=== PATIENT | female | born 1990 | race Caucasian/White ===

== ENCOUNTER 2016-10-14 22:48 | Emergency (ER) | payer BC ==
[2016-10-14] MEDS ORDERED: LORazepam INJ* 2 MG/ML 1 ML VIAL IV PUSH ONE (23:09)
--- NOTE | 2016-10-14 23:17 | ED ---
Psychiatric Complaint - HPI Summary HPI Summary: Patient presents to ED with CC of anxiety attack after speaking with her boyfriend on the phone this afternoon. She notes to 1 alcoholic drink prior to the phone call. She has a history of bipolar and depression, but has never been dx with anxiety. She takes multiple medications for depression and bipolar and is seen by a counselor. She admits this happening twice before, but never this bad. She denies SI/HI or self harm. Denies current pain. She states her throat feels uncomfortable because of hyperventilating. She did not take anything for relief. On arrival, she is notably anxious, but is breathing OK. - History Of Current Complaint Chief Complaint: EDMentalHealth Time Seen by Provider: 10/14/16 23:00 Hx Obtained From: Patient Hx Last Menstrual Period: 2 MONTHS AGO ?: No Onset/Duration: Sudden Onset Timing: Minutes Severity Initially: Moderate Severity Currently: Mild Character: Depressed, Anxious Aggravating Factor(s): Recent Stress Alleviating Factor(s): Medication, Counseling Related History: Positive For: Prior Psychiatric Issues - Risk Factor(s) Completed Suicide Risk Factors: Negative - Allergies/Home Medications Allergies/Adverse Reactions: Allergies Allergy/AdvReac Type Severity Reaction Status Date / Time Sertraline Allergy Severe trouble Verified 05/25/14 19:28 breathing Eletriptan [From Relpax] Allergy Intermediate Swelling Verified 05/25/14 19:28 Of Face,Lips,& Throat Cefdinir [From Omnicef] Allergy Mild Hives Verified 05/25/14 19:28 Penicillins Allergy Mild rash, hives Verified 05/25/14 19:28 PMH/Surg Hx/FS Hx/Imm Hx Previously Healthy: Yes Endocrine/Hematology History: Reports: Hx Thyroid Disease Denies: Hx Anticoagulant Therapy, Hx Diabetes Cardiovascular History: Denies: Hx Hypertension, Hx Pacemaker/ICD Respiratory History: Denies: Hx Asthma, Hx Chronic Obstructive Pulmonary Disease (COPD) GI History: Reports: Hx Crohn's Disease History: Denies: Hx Renal Disease Musculoskeletal History: Reports: Hx Back Problems Denies: Hx Rheumatoid Arthritis, Hx Osteoporosis Neurological History: Reports: Hx Migraine, Other Neuro Impairments/Disorders - Angioneurotic edema Denies: Hx Dementia, Hx Seizures Psychiatric History: Denies: Hx Substance Abuse - Cancer History Cancer Type, Location and Year: migraines, chrons - Surgical History Surgery Procedure, Year, and Place: ear tubes x4. ADDENOIDECTOMY. liver biopsy Infectious Disease History: Reports: Hx Shingles - ? right side/never had a rash Denies: Hx Clostridium Difficile, Hx Hepatitis, Hx Human Immunodeficiency Virus (HIV), Hx Tuberculosis, Hx Known/Suspected VRE, Hx Known/Suspected VRSA, History Other Infectious Disease, Traveled Outside the [place] in Last 30 Days - Social History Occupation: Unemployed Lives: With Family Alcohol Use: Occasionally Hx Substance Use: No Substance Use Type: Reports: None Hx Tobacco Use: No Smoking Status (MU): Never Smoked Tobacco Do You Chew or Dip Tobacco: No Have You Chewed or Dipped Tobacco in the LAST YEAR: No Review of Systems Constitutional: Negative Eyes: Negative Cardiovascular: Negative Respiratory: Negative Positive: no symptoms reported, see HPI Musculoskeletal: Negative Skin: Negative Positive: Anxious, Depressed All Other Systems Reviewed And Are Negative: Yes Physical Exam Triage Information Reviewed: Yes Vital Signs Reviewed: Yes Appearance: Positive: Well-Appearing, Well-Nourished Skin: Positive: Warm, Skin Color Reflects Adequate Perfusion Head/Face: Positive: Normal Head/Face Inspection Eyes: Positive: EOMI, MARÍA ELENA, Conjunctiva Clear Neck: Positive: Supple, No Lymphadenopathy Respiratory/Lung Sounds: Positive: Clear to Auscultation, Breath Sounds Present Cardiovascular: Positive: Normal, RRR, Pulses are Symmetrical in both Upper and Lower Extremities Musculoskeletal: Positive: Normal, Strength/ROM Intact Neurological: Positive: Normal, Sensory/Motor Intact, Alert, Oriented to Person Place, Time Psychiatric: Positive: Anxious AVPU Assessment: Alert Course/Dx - Course Assessment/Plan: Patient is very anxious on arrival, but is calm after 2mg ativan. She does not have any at home medication for breakthrough anxiety. Provider explained ways to handle anxiety and given prescription for ativan. She is OK with plan. Denies SI/HI and is well connected with resources. Discharged with ativan prescription. - Differential Dx/Clinical Impression Differential Diagnosis/HQI/PQRI: Positive: Alcohol Intoxication, Anxiety, Bipolar Disorder, Depression Provider Diagnosis: Anxiety attack Discharge - Discharge Plan Condition: Stable Disposition: HOME Prescriptions: Lorazepam [Ativan 1 MG TAB] 1 mg PO TID PRN #30 tab MDD 3 PRN Reason: Anxiety Patient Education Materials: Anxiety (ED) Referrals: Jander,Ronel, MD [Medical Doctor] - Additional Instructions: Take Ativan 1mg as needed at first feeling of anxiety symptoms. Follow up with your doctor for more evaluation. If you develop worsening symptoms, come back to ED. After taking the ativan, place your head between your knees, close your eyes and breath deeply for several minutes thinking about something that makes you happy. This relieves a lot of anxiety immediately and will help prevent hyperventilation.
[2016-10-15] MEDS ORDERED: LORazepam INJ* 2 MG/ML 1 ML VIAL IM ONE (00:02)
[2016-10-15] MEDS ORDERED: Ibuprofen TAB* 600 MG PO ONE (01:09)
[2016-10-15] MEDS ORDERED: LORazepam TAB(*) 1 MG PO ONE (01:18)
[2016-10-15 01:30] VITALS: BP 93/61
== END 2016-10-15 01:30 | disposition home or self-care (01) ==
LOC: ED 22:48
DX: F41.9 Anxiety disorder, unspecified (principal)
CPT/HCPCS: 96372; 96374; 99282; A9270-GY; J2060

== ENCOUNTER 2017-06-05 04:46 | Emergency (ER) | payer BC ==
[2017-06-05] MEDS ORDERED: Metoclopramide IV* 5 MG/ML 2 ML VIAL IV SLOW PU ONE (05:30)
[2017-06-05] MEDS ORDERED: Ketorolac INJ* 30 MG/ML 1 ML VIAL IV PUSH ONE (05:30)
[2017-06-05] MEDS ORDERED: NS 0.9% 1000 ML* 1,000 ML IV ONE ×2 (05:31→08:13)
[2017-06-05] MEDS ORDERED: diPHENhydraMINE IV* 50 MG/ML 1 ml VIAL (BENADRYL) IV ONE (05:31)
--- NOTE | 2017-06-05 06:53 | ED ---
Jaki Gyu Thomas, scribed for Ulysses Isabel MD on 06/05/17 at 0522 . Headache - HPI Summary HPI Summary: The patient is a 26 year old female with a history of migraine headaches presenting to the emergency department complaining of a migraine headache for the last 1.5 days. The headache is a frontal headache. The pain is constant and is rated 10/10. The pain is aggravated by bright lights. The patient has treated the symptoms with Topiramate and Compazine prior to arrival. The patient says her current headache is similar to her prior migraines. Patient complains of nausea, photophobia, and intermittent blurred vision. She denies focal weakness or numbness. - History Of Current Complaint Chief Complaint: EDHeadache Stated Complaint: MIGRAINE Hx Obtained From: Patient Hx Last Menstrual Period: 2 MONTHS AGO Onset/Duration: Started days ago - 1.5, Still Present Currently Pain Is: Current Pain Scale(0-10)= - 10 Timing: Constant Character: Migraine Aggravating Factor: Bright Lights Allevating Factors: Other (Noted In Comments) - Topiramate, compazine Associated Signs And Symptoms: Negative - fever, Nausea, Visual Changes, Other ( Noted In Comments) - Photophobia; NEGATIVE: focal weakness/numbness Related History: Similar Episode/DX As: - prior migraine - Allergies/Home Medications Allergies/Adverse Reactions: Allergies Allergy/AdvReac Type Severity Reaction Status Date / Time Sertraline Allergy Severe trouble Verified 05/25/14 19:28 breathing Eletriptan [From Relpax] Allergy Intermediate Swelling Verified 05/25/14 19:28 Of Face,Lips,& Throat Cefdinir [From Omnicef] Allergy Mild Hives Verified 05/25/14 19:28 Penicillins Allergy Mild rash, hives Verified 05/25/14 19:28 Trazodone AdvReac Mild Headache Verified 06/05/17 04:51 PMH/Surg Hx/FS Hx/Imm Hx Previously Healthy: No Endocrine/Hematology History: Reports: Hx Thyroid Disease Denies: Hx Anticoagulant Therapy, Hx Diabetes Cardiovascular History: Denies: Hx Hypertension, Hx Pacemaker/ICD Respiratory History: Denies: Hx Asthma, Hx Chronic Obstructive Pulmonary Disease (COPD) GI History: Reports: Hx Crohn's Disease History: Denies: Hx Renal Disease Musculoskeletal History: Reports: Hx Back Problems Denies: Hx Rheumatoid Arthritis, Hx Osteoporosis Neurological History: Reports: Hx Migraine, Other Neuro Impairments/Disorders - Angioneurotic edema Denies: Hx Dementia, Hx Seizures Psychiatric History: Denies: Hx Substance Abuse - Cancer History Cancer Type, Location and Year: migraines, chrons - Surgical History Surgery Procedure, Year, and Place: ear tubes x4. ADDENOIDECTOMY. liver biopsy Infectious Disease History: No Infectious Disease History: Reports: Hx Shingles - ? right side/never had a rash Denies: Hx Clostridium Difficile, Hx Hepatitis, Hx Human Immunodeficiency Virus (HIV), Hx Tuberculosis, Hx Known/Suspected VRE, Hx Known/Suspected VRSA, History Other Infectious Disease, Traveled Outside the [place] in Last 30 Days - Family History Known Family History: Positive: Other - Patient denies relevant FHx - Social History Alcohol Use: Occasionally Hx Substance Use: No Substance Use Type: Reports: None Hx Tobacco Use: No Smoking Status (MU): Never Smoked Tobacco Review of Systems Negative: Fever Positive: Photophobia, Blurred Vision Positive: Nausea Positive: Headache. Negative: Weakness - focal, Numbness - focal All Other Systems Reviewed And Are Negative: Yes Physical Exam - Summary Physical Exam Summary: VITAL SIGNS: Reviewed. GENERAL: Patient is a well-developed and nourished female who is lying comfortable in the stretcher. Patient is not in any acute respiratory distress. HEAD AND FACE: No signs of trauma. No ecchymosis, hematomas or skull depressions. No sinus tenderness. EYES: PERRLA, EOMI x 2, No injected conjunctiva, no nystagmus. EARS: Hearing grossly intact. Ear canals and tympanic membranes are within normal limits. MOUTH: Oropharynx within normal limits. NECK: Supple, trachea is midline, no adenopathy, no JVD, no carotid bruit, no c- spine tenderness, neck with full ROM. CHEST: Symmetric, no tenderness at palpation LUNGS: Clear to auscultation bilaterally. No wheezing or crackles. CVS: Regular rate and rhythm, S1 and S2 present, no murmurs or gallops appreciated. ABDOMEN: Soft, non-tender. No signs of distention. No rebound no guarding, and no masses palpated. Bowel sounds are normal. EXTREMITIES: FROM in all major joints, no edema, no cyanosis or clubbing. NEURO: Alert and oriented x 3. No acute neurological deficits. Speech is normal and follows commands. SKIN: Dry and warm Triage Information Reviewed: Yes Vital Signs On Initial Exam: Initial Vitals Temp Pulse Resp BP Pulse Ox 98.3 F 108 16 135/87 98 06/05/17 04:47 06/05/17 04:47 06/05/17 04:47 06/05/17 04:47 06/05/17 04:47 Vital Signs Reviewed: Yes - Donnie Coma Scale Coma Scale Total: 15 Diagnostics - Vital Signs Vital Signs Temp Pulse Resp BP Pulse Ox 06/05/17 05:05 98.3 F 80 16 127/89 100 06/05/17 04:47 98.3 F 108 16 135/87 98 - Laboratory Lab Statement: Any lab studies that have been ordered have been reviewed, and results considered in the medical decision making process. Headache Course/Dx - Course Assessment/Plan: The patient is a 26 year old female with a history of migraine headaches presenting to the emergency department complaining of a migraine headache for the last 1.5 days. In the ED course the patient was given Benadryl , Toradol, Reglan, and IV fluids. The patient is diagnosed with migraine headache. The patient will be signed out to Dr. Thomas pending re-evaluation and awaiting disposition. - Diagnoses Provider Diagnoses: Migraine headache Discharge - Discharge Plan Condition: Stable Disposition: OTHER Discharge Disposition Comment: Sign out to Dr. Thomas at shift change, pending re-eval, awaiting dispo. Patient Education Materials: Migraine Headache (ED) Referrals: [facility] [Outside] - 3 Days Additional Instructions: Follow up with your primary care physician in three days. Return to the emergency department for any new or worsening symptoms. The documentation as recorded by the Jaki lebron Thomas accurately reflects the service I personally performed and the decisions made by me, Ulysses Isabel MD.
[2017-06-05 10:46] VITALS: BP 102/66
--- NOTE | 2017-06-05 18:22 | ED ---
Miko Guy Abhishek, scribed for Angelo Thomas MD on 06/05/17 at 0845 . Course/Dx - Course Course Of Treatment: IMPROVED IN ED. F/U PMD; RETURN IF WORSE. - Diagnoses Provider Diagnoses: Migraine headache Progress (inactive) - Progress Note Progress Note: PT was signed out by Dr. Isabel and is pending disposition. After reevaluation, we discussed giving another liter of fluids , and BENOIT has improved slightly. There was no acute distress and the patient overall feel improved. The documentation as recorded by the Miko lebron Abhishek accurately reflects the service I personally performed and the decisions made by , Angelo Thomas MD.
== END 2017-06-05 10:46 | disposition home or self-care (01) ==
LOC: ED 04:46
DX: G43.909 Migraine, unspecified, not intractable, without status migrainosus (principal)
CPT/HCPCS: 96374; 96375; 96376; 99282; J1200; J1885; J2765

== ENCOUNTER → 2018-07-10 22:35 | Emergency (ER) | payer BC ==
[~2018-07-10 22:35] MED LIST: NS 0.9% 1000 ML** 2,000 ML IV ONE; PROCHLORPERAZINE INJ 5 MG/ML 2 ML VIAL IV ONE
--- NOTE | 2018-07-10 23:06 | ED ---
GI/ HPI - HPI Summary HPI Summary: Pt is a 27 y/o F presenting to the ED with a chief complaint of nausea and joint pain. The pt has a hx of crohns disease, hypothyroidism, and migraines. Since before , she had her gallbladder out and had a flare up of her Crohns dz after that, which hasnt completely gone away. She tried to take her medicine today and it hasnt been helping. She states she got on her second plane ([place] to [place]) and the pain/discomfort has gotten worse upon landing in [place] around 1999. Pt reports nausea, knee joint pain, and abd pain. Pt denies vomiting. - History of Current Complaint Chief Complaint: EDGeneral Time Seen by Provider: 07/10/18 22:54 Stated Complaint: NAUSEA, JOINT PAIN Hx Obtained From: Patient Hx Last Menstrual Period: 2 MONTHS AGO Onset/Duration: Started Hours Ago Timing: Constant, Lasting Hours Severity: Mild Current Severity: Moderate Pain Intensity: 8 Location of Pain: Diffuse Pain Characteristics: Sharp Associated Signs and Symptoms: Positive: Nausea, Other: - joint pain. Negative : Vomiting Aggravating Factor(s): Nothing Alleviating Factor(s): Nothing - Allergy/Home Medications Allergies/Adverse Reactions: Allergies Allergy/AdvReac Type Severity Reaction Status Date / Time MS Sertraline [Sertraline] Allergy Severe trouble Verified 05/25/14 19:28 breathing MS Eletriptan [From Relpax] Allergy Intermediate Swelling Verified 05/25/14 19: 28 Of Face,Lips,& Throat MS Cefdinir [From Omnicef] Allergy Mild Hives Verified 05/25/14 19:28 MS Penicillins [Penicillins] Allergy Mild rash, hives Verified 05/25/14 19:28 ondansetron [From Zofran] Allergy Unknown Verified 07/10/18 22:43 Reaction Details quetiapine [From Seroquel] Allergy Unknown Verified 07/10/18 22:43 Reaction Details MS Trazodone [Trazodone] AdvReac Mild Headache Verified 06/05/17 04:51 Home Medications: Home Medications Omeprazole 20 mg PO DAILY 07/10/18 [History Confirmed 07/10/18] Promethazine SUPP* [Phenergan Supp*] 1 supp MO DAILY PRN 07/10/18 [History Confirmed 07/10/18] PMH/Surg Hx/FS Hx/Imm Hx Previously Healthy: No Endocrine/Hematology History: Reports: Hx Thyroid Disease Denies: Hx Anticoagulant Therapy, Hx Diabetes Cardiovascular History: Denies: Hx Hypertension, Hx Pacemaker/ICD Respiratory History: Denies: Hx Asthma, Hx Chronic Obstructive Pulmonary Disease (COPD) GI History: Reports: Hx Crohn's Disease History: Denies: Hx Renal Disease Musculoskeletal History: Reports: Hx Back Problems Denies: Hx Rheumatoid Arthritis, Hx Osteoporosis Neurological History: Reports: Hx Migraine, Other Neuro Impairments/Disorders - Angioneurotic edema Denies: Hx Dementia, Hx Seizures Psychiatric History: Denies: Hx Substance Abuse - Cancer History Cancer Type, Location and Year: migraines, chrons - Surgical History Surgery Procedure, Year, and Place: ear tubes x4. ADDENOIDECTOMY. liver biopsy Infectious Disease History: No Infectious Disease History: Reports: Hx Shingles - ? right side/never had a rash Denies: Hx Clostridium Difficile, Hx Hepatitis, Hx Human Immunodeficiency Virus (HIV), Hx Tuberculosis, Hx Known/Suspected VRE, Hx Known/Suspected VRSA, History Other Infectious Disease, Traveled Outside the in Last 30 Days - Family History Known Family History: Negative: Renal Disease - Social History Occupation: Unemployed Lives: With Family Alcohol Use: Occasionally Hx Substance Use: No Substance Use Type: Reports: None Hx Tobacco Use: No Smoking Status (MU): Never Smoked Tobacco Review of Systems Negative: Fever Positive: Abdominal Pain, Nausea. Negative: Vomiting Positive: Arthralgia All Other Systems Reviewed And Are Negative: Yes Physical Exam - Summary Physical Exam Summary: Appearance: Well-appearing, Well-nourished, lying in bed comfortably Skin: Warm, dry, no obvious rash Eyes: sclera anicteric, no conjunctival pallor ENT: mucous membranes moist, pharynx appears normal Neck: Supple, nontender Respiratory: Clear to auscultation, no signs of respiratory distress Cardiovascular: Normal S1, S2. No murmurs. Normal distal pulses in tibial and radial bilaterally. Abdomen: Soft, nontender, normal active bowel sounds present Musculoskeletal: No edema, erythemous, or warmth of knees. Strength/ROM Intact Neurological: A&Ox3, awake and alert, mentation is normal, speech is fluent and appropriate Psychiatric: affect is normal, does not appear anxious or depressed Triage Information Reviewed: Yes Vital Signs On Initial Exam: Initial Vitals Temp Pulse Resp BP Pulse Ox 97.3 F 112 16 129/97 96 07/10/18 22:35 07/10/18 22:35 07/10/18 22:35 07/10/18 22:35 07/10/18 22:35 Vital Signs Reviewed: Yes Diagnostics - Vital Signs Vital Signs Temp Pulse Resp BP Pulse Ox 07/10/18 22:35 97.3 F 112 16 129/97 96 - Laboratory Result Diagrams: 07/10/18 23:03 07/10/18 23:03 Lab Statement: Any lab studies that have been ordered have been reviewed, and results considered in the medical decision making process. - EKG 2329 Cardiac Rate: Tachycardia - 106bpm EKG Rhythm: Sinus Tachycardia ST Segment: Normal Ectopy: None Re-Evaluation - Re-Evaluation 1st re-eval Re-Evaluation Time: 01:30 Change: Improved Comment: Pt feels better, her joint pain has resolved. She is stable and will be discharged home. GIGU Course/Dx - Diagnoses Provider Diagnoses: Crohn disease Discharge - Sign-Out/Discharge Documenting (check all that apply): Patient Departure Patient Received Moderate/Deep Sedation with Procedure: No - Discharge Plan Condition: Improved Disposition: HOME Prescriptions: predniSONE TAB* [Deltasone 20 MG TAB*] 40 mg PO DAILY 5 Days #10 tab Patient Education Materials: Crohn Disease (ED) Referrals: [facility] [Outside] - If Needed [facility] [Outside] - Billing Disposition and Condition Condition: IMPROVED Disposition: Home - Attestation Statements Document Initiated by Elíasibe: Yes Documenting Scribe: Ly West Provider For Whom Blake is Documenting (Include Credential): Will Rios MD. Scribe Attestation: Ly Guy, stacieed for Will Rios MD. on 07/11/18 at 0241. Scribe Documentation Reviewed: Yes Provider Attestation: The documentation as recorded by the Ly lebron accurately reflects the service I personally performed and the decisions made by me, Will Rios MD. Status of Scribe Document: Viewed
[2018-07-10 23:20] LABS: Hematocrit 48 % (35-47); Hemoglobin 16.4 g/dl (12.0-16.0); Mean Corpuscular HGB Conc 34 g/dl (31-36); Mean Corpuscular Hemoglobin 31 pg (27-31); Mean Corpuscular Volume 90 fL (80-97); Red Blood Count 5.28 10^6/ul (4.00-5.40); Red Cell Distribution Width 14 % (10.5-15); White Blood Count 9.6 10^3/ul (3.5-10.8)
[2018-07-10 23:38] LABS: HCG Pregnancy < 0.60 mIU/mL
[2018-07-10 23:40] LABS: ABS Basophils 0.1 10^3/ul (0-0.2); ABS Eosinophils 0 10^3/ul (0-0.6); ABS Lymphocytes 2.9 10^3/ul (1.0-4.8); ABS Monocytes 0.6 10^3/ul (0-0.8); ABS Nucleated RBC 0 10^3/ul; Eosinophil % 0.1 %; Lymphocyte % 30.2 %; Mean Platelet Volume 8.1 fL (7.4-10.4); Nucleated Red Blood Cells % 0.1; Platelet Count 239 10^3/ul (150-450)
[2018-07-10 23:55] LABS: Anion Gap 11 mmol/L (2-11); CO2 Carbon Dioxide 15 mmol/L (22-32); Calcium 9.6 mg/dL (8.6-10.3); Chloride 111 mmol/L (101-111); Potassium 3.4 mmol/L (3.5-5.0); Sodium 137 mmol/L (135-145)
[2018-07-11 00:15] LABS: ALT 454 U/L (7-52); AST 206 U/L (13-39); Albumin/Globulin Ratio 1.3 (1-3); Alkaline Phosphatase 130 U/L (34-104); Blood Urea Nitrogen 8 mg/dL (6-24); EGFR African American 91.4 (>60); EGFR Non-African American 75.5 (>60); Globulin 3.2 g/dL (2-4); Glucose 85 mg/dL (70-100); Total Protein 7.2 g/dL (6.4-8.9)
[2018-07-11 01:40] VITALS: BP 108/67
== END | disposition home or self-care (01) ==
LOC: ED 22:35
DX: K50.90 Crohn's disease, unspecified, without complications (principal); R00.0 Tachycardia, unspecified; Z88.1 Allergy status to other antibiotic agents; Z88.0 Allergy status to penicillin; Z88.8 Allergy status to other drugs, medicaments and biological substances
CPT/HCPCS: 36415; 80053; 83690; 84702; 85025; 93005; 96374; 99283; J0780